=== PATIENT | male | born 1985 | race Caucasian/White ===

== ENCOUNTER 2017-01-28 20:10 | Emergency (ER) | payer OTHER ==
[2017-01-29 00:22] VITALS: BP 131/83
[2017-01-29] MEDS ORDERED: MOTRIN PO ONE (00:55)
--- NOTE | 2017-01-29 00:57 | Emergency Department Report ---
HPI - General Chief Complaint: Sore Throat Time Seen by Provider: 01/29/17 00:52 - HPI HPI: 33-year-old male comes in for fever and sore throat that started at 1400 hrs. on Friday. He reports that he took one dose of TheraFlu and came in to be evaluated. Reports that he is not up-to-date on his shots. He has no past medical history he currently takes no medication. She denies any nausea no vomiting no nasal congestion, no sneezing, no runny eyes, no ear pain, no cough, no chest pain and no rhinorrhea. ED Past Medical Hx - Past Medical History Previous Medical History?: No - Surgical History Past Surgical History?: No - Social History Smoking Status: Light Tobacco Smoker Substance Use Type: Alcohol - Medications Home Medications: Home Medications Medication Instructions Recorded Confirmed Last Taken Type Ibuprofen [Motrin 800 MG tab] 800 mg PO Q8HR #30 tablet 01/29/17 Unknown Rx ED Review of Systems ROS: Stated complaint: FEVER/SORE THROAT Other details as noted in HPI Physical Exam - Physical Exam Vital Signs: Vital Signs 01/28/17 01/29/17 21:21 00:20 Temperature 98.5 F 98.4 F Pulse Rate 75 74 Respiratory 16 16 Rate Blood Pressure 131/83 Blood Pressure 139/74 [Right] O2 Sat by Pulse 100 100 Oximetry Physical Exam: GENERAL: Alert and oriented x3, no apparent distress, Normal Gait, atraumatic. HEAD: Head is normocephalic and a-traumatic. EYES: Extra ocular muscles are intact. Pupils are equal, round, and reactive to light and accommodation. EARS: symetrical, atraumatic, non tender, ear canal clear and moderate cerumen, tympanic membrance non inflamed. gross auditory nml bilaterally. NOSE: Nose symetrical, Nontender,Nares appeared normal. MOUTH:Mouth is well hydrated and without lesions. Tonsils +erythematous + swollen, Uvula midline, Tongue not elevated. Mucous membranes are moist. Posterior pharynx clear, no exudate or lesions. Patent airways. NECK: Supple. Non edematous, No carotid bruits. No lymphadenopathy or thyromegaly. LUNGS: Symetrical with respiration, No wheezing, no rales or crackles, CTAB. HEART: S1, S2 present, regular rate and rhythm without murmur, no rubs, no gallops. ABDOMEN: No organomegaly was noted,Positive bowel sounds, soft, and non- distended. . Nontender to palpation on all Quadrants, NO CVA tenderness. EXTREMITIES/MUSCULOSKELETAL: No cyanosis, clubbing, rash, lesions or edema. Full ROM bilaterally. bilaterally NEUROLOGIC: No focal Deficit, Cranial nerves II through XII are grossly intact. No loss of sensation, No facial droop, PSYCHIATRIC: Mood is congruent with affect, . SKIN: Warm and dry, No lesions, No ulceration or induration present ED Course Vital Signs 01/28/17 01/29/17 21:21 00:20 Temperature 98.5 F 98.4 F Pulse Rate 75 74 Respiratory 16 16 Rate Blood Pressure 131/83 Blood Pressure 139/74 [Right] O2 Sat by Pulse 100 100 Oximetry ED Medical Decision Making - Medical Decision Making Patient has been evaluated by this provider fast track. Discussed with patient that he needs to follow-up with his primary care provider if he is not feeling better within 3-5 days. Discussed the patient to take Motrin or Tylenol for pain. Discussed patient with no fever at this time. We'll place a referral for patient. Critical care attestation.: If time is entered above; I have spent that time in minutes in the direct care of this critically ill patient, excluding procedure time. ED Disposition Clinical Impression: Sorethroat Disposition: DISCHARGED TO HOME OR SELFCARE Is pt being admited?: No Does the pt Need Aspirin: No Condition: Stable Instructions: Menthol (By mouth) Additional Instructions: Take ibuprofen for pain. Follow-up with her primary care provider if symptoms persist or gets worse. Prescriptions: Ibuprofen [Motrin 800 MG tab] 800 mg PO Q8HR #30 tablet Referrals: PRIMARY CARE, [Primary Care Provider] - 3-5 Days [facility] - [facility]-5 Days Forms: Work/School Release Form(ED), Accompanied Note
== END 2017-01-29 01:15 | disposition home or self-care (01) ==
LOC: ED 20:10
DX: J02.9 Acute pharyngitis, unspecified (principal); F17.200 Nicotine dependence, unspecified, uncomplicated
CPT/HCPCS: 99282